=== PATIENT | female | born 1975 | race Caucasian/White ===

== ENCOUNTER 2019-07-11 11:48 | Outpatient (CLI) | payer BC ==
--- NOTE | 2019-07-11 12:06 | RAD ---
PA AND LATERAL VIEWS CHEST: HISTORY: Cough. FINDINGS: The heart size is normal. The lungs are expanded without lobar consolidation, pneumothoraces, or ple ural effusions. No acute osseous abnormalities are seen. IMPRESSION: No radiographic evidence of acute cardiopulmonary process. POS: OFF
== END 2019-07-11 11:49 | disposition home or self-care (01) ==
LOC: RAD 11:48
PROVIDERS: ATTEND Nurse Practitioner Family
DX: R05 Cough (principal)
CPT/HCPCS: 71046

== ENCOUNTER 2020-07-20 14:26 | Outpatient (CLI) | payer BC | END 2020-07-20 14:27 | disposition home or self-care (01) | LOC: BICRAD 14:26 | PROVIDERS: ATTEND Nurse Practitioner Family | DX: M54.5 Low back pain (principal); M41.9 Scoliosis, unspecified; M51.86 Other intervertebral disc disorders, lumbar region | CPT/HCPCS: 72110 ==

== ENCOUNTER 2020-09-11 07:56 | Outpatient (CLI) | payer BC | END 2020-09-11 07:57 | disposition home or self-care (01) | LOC: TBSIIMAG 07:56 | PROVIDERS: ATTEND Nurse Practitioner Family | DX: M47.26 Other spondylosis with radiculopathy, lumbar region (principal) | CPT/HCPCS: 72148 ==

== ENCOUNTER 2021-03-22 12:37 | Outpatient (CLI) | payer BC | END 2021-03-22 12:38 | disposition home or self-care (01) | LOC: BICULT 12:37 | PROVIDERS: ATTEND Internal Medicine | DX: E04.1 Nontoxic single thyroid nodule (principal) | CPT/HCPCS: 76536 ==

== ENCOUNTER 2021-04-08 16:54 | Outpatient (CLI) | payer BC ==
[2021-04-09 09:14] LABS: SARS-CoV-2 PCR by NAA Not Detected (NotDetected)
== END 2021-04-08 16:55 | disposition home or self-care (01) ==
LOC: LABBT 16:54
PROVIDERS: ATTEND Otolaryngology Plastic Surgery within the Head & Neck
DX: Z01.812 Encounter for preprocedural laboratory examination (principal); E04.1 Nontoxic single thyroid nodule; R22.1 Localized swelling, mass and lump, neck; Z20.822 Contact with and (suspected) exposure to COVID-19
CPT/HCPCS: 85014; U0003; U0005

== ENCOUNTER 2021-04-10 07:16 | Day surgery (SDC) | payer BC ==
[2021-04-08 10:50] VITALS: BMI 23.3
[2021-04-10] MEDS ORDERED: Scopolamine 1.5 mg/72 hour Patch ONE (08:11)
[2021-04-10] MEDS ORDERED: Dexmedetomidine 200 MCG/2 ML VIAL ONE (08:50)
[2021-04-10] MEDS ORDERED: Propofol 500 MG/50 ML VIAL ONE (08:50)
[2021-04-10] MEDS ORDERED: Lidocaine 1% w/Epinephrine 1:100K 20 ML VIAL ONE (09:01)
[2021-04-10] MEDS ORDERED: Bacitracin Zinc Ointment 30 gm TUBE ONE (09:01)
[2021-04-10] MEDS ORDERED: Fentanyl 100 MCG/2 ML VIAL ONE (09:06)
[2021-04-10] MEDS ORDERED: Lidocaine 1% PF 5 ML VIAL ONE (09:30)
[2021-04-10] MEDS ORDERED: PHENYLEPHRINE-NS 100 MCG/ML 10 ML SYRINGE ONE (09:30)
[2021-04-10] MEDS ORDERED: Succinylcholine 200 MG/10 ml SYRINGE FS ONE (09:30)
[2021-04-10] MEDS ORDERED: Glycopyrrolate 0.2 MG/ML 5 ML SYRINGE ONE (09:30)
[2021-04-10] MEDS ORDERED: PROPOFOL 200 MG/20 ML VIAL ONE (09:30)
[2021-04-10] MEDS ORDERED: Ondansetron PF 4 MG/2 ML Vial ONE (09:30)
[2021-04-10] MEDS ORDERED: Rocuronium Bromide 10 MG/ML (10ML VIAL) ONE (09:30)
[2021-04-10] MEDS ORDERED: Dexamethasone 20 MG/5 ML VIAL ONE (09:30)
[2021-04-10] MEDS ORDERED: ePHEDrine 50 MG/ML VIAL ONE (09:30)
[2021-04-10] MEDS ORDERED: HYDROcodone/Acetaminophen 5/325 mg Tablet ONE (13:11)
== END 2021-04-10 13:30 | disposition home or self-care (01) ==
LOC: SDC 07:16
PROVIDERS: ATTEND Otolaryngology Plastic Surgery within the Head & Neck
PROC: 0GTH0ZZ Resection of Right Thyroid Gland Lobe, Open Approach (ICD-10-PCS; principal; 2021-04-10)
DX: D34 Benign neoplasm of thyroid gland (principal); E06.3 Autoimmune thyroiditis
CPT/HCPCS: 88307; 88331; 88334; C1776; C1889; J1100; J2405; J2704; J3010; J3490